=== PATIENT | female | born 1940 | race Caucasian/White ===

== ENCOUNTER → 2019-10-29 12:45 | Outpatient (BNVA) | payer MEDICARE, BC, SELFPAY | PROVIDERS: Visit Provider Internal Medicine Hematology & Oncology | DX: C50.919 Malignant neoplasm of unspecified site of unspecified female breast (principal) | CPT/HCPCS: 80053; 85025 ==

== ENCOUNTER 2019-10-31 10:57 | Outpatient (CLI) | payer MEDICARE, BC, SELFPAY ==
--- NOTE | 2019-10-31 11:49 | ONC FU_ITS ---
Dr. Hutton follow up note Patient: Loreto Ceballos Unit #: [id number]: 1940 Dicatated By: Atif Hutton M.D.Date of Visit:Oct 31, 2019 Onc Med Follow-up/Prog Note History of Present Illness: Mrs. Loreto Ceballos,79 -year-old female with recent history of left breast mass underwent mammogram and left breast ultrasound on 03/23/2017. It confirmed BI-RADS Category 4 suspicious lesion at 2:00 position. Underwent ultrasound-guided left breast biopsy on 04/20/2017 showed ductal carcinoma in situ followed by left breast lumpectomy on 05/10/2017 And final pathology report showed ductal carcinoma in situ, low-grade, cribriform histology Pattern, tumor dimension 1.4 x 1.4 cm with clear surgical margins, ER/IA positive followed by postlumpectomy radiation started on arimidex in may and Tolerating well mammogram done on 05/22/2019, showed BI-RADS 2, benign Came for follow-up, denies any specific complaints, no nausea vomiting no fever no chills no diarrhea constipation, hot flashes are improving, tolerating Arimidex well. Medications: Anastrozole 1 (1 mg) Tablet Oral daily, Aspirin Low Dose 1 Tablet (of 81 mg) Oral daily, CeleXA 1 Tablet (of 10 mg) Oral daily, Cholecalciferol 1 Tablet (of 1000 Units) Capsule Oral daily, Crestor 1 Tablet (of 10 mg) Oral daily, Cyanocobalamin 1 (1000 mcg) Tablet Oral daily, HydroCHLOROthiazide 1 Tablet (of 12.5 mg) Oral daily, Irbesartan 1 Tablet (of 150 mg) Oral daily, Metoprolol Tartrate 1 Tablet (of 50 mg) Oral b.i.d., Omeprazole 1 Tablet (of 10 mg) Capsule Delayed Release Oral daily, TraZODone HCl 1.5 Tablet (of 100 mg) Oral daily Allergies: Tetracycline HCl Review of Systems: Review of Systems is not available for this patient. Vital Signs: Performed on Oct 31, 2019 11:07 Height - 67.00 in Weight - 201.1 lbs (HIGH) BSA - 2.03 sq.m BMI - 31.50 (HIGH) Temperature - 97.6 F (LOW) Pulse - 69 /min Respiration - 17 /min BP - 144/62 mm(hg) (HIGH) O2 Sat - 97 % Pain - 0 Performance Status: 0 - Fully active, able to carry on all predisease activities without restrictions. (ECOG) Physical Examination: Respiratory - Lungs are clear to auscultation without rhonchi or wheezing, Cardiovascular - Regular rate and rhythm of heart, Extremities - no edema. 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 Estrogen receptor 99% strongly positive Progesterone receptors 99% strongly positive s/p postlumpectomy radiation concluded on 07/18/2017 Started on Arimidex on 06/26/2017 Plan: Discussed with patient regarding her labs white blood count 5.9 hemoglobin 12.8 crit 39.2 platelets 199,000 CMP within normal limits Clinically, patient doing well, with no signs symptom suggestive of recurrence of disease. Tolerating Arimidex well, we'll continue same Mild leukopenia, now resolved, will continue to monitor, calcium is on the upper side of normal. Return to clinic in 6 month with CBC CMP and yearly mammogram. Signed By: Atif Hutton M.D. <<Signature on File>>
== END 2019-10-31 10:58 | disposition home or self-care (01) ==
LOC: ONCMED 11:02
PROVIDERS: PCP Family Medicine; Visit Provider Internal Medicine Hematology & Oncology
DX: D05.12 Intraductal carcinoma in situ of left breast (principal); Z17.0 Estrogen receptor positive status [ER+]; Z79.811 Long term (current) use of aromatase inhibitors; Z79.82 Long term (current) use of aspirin; Z79.899 Other long term (current) drug therapy
CPT/HCPCS: 99214

== ENCOUNTER → 2020-04-28 13:12 | Outpatient (BNVA) | payer MEDICARE, BC, SELFPAY | PROVIDERS: PCP Family Medicine; Visit Provider Internal Medicine Hematology & Oncology | DX: C50.919 Malignant neoplasm of unspecified site of unspecified female breast (principal) | CPT/HCPCS: 80053; 85025 ==

== ENCOUNTER 2020-04-30 06:05 | Outpatient (CLI) | payer MEDICARE, BC, SELFPAY ==
--- NOTE | 2020-04-30 13:05 | ONC FU_ITS ---
Dr. Hutton follow up note Patient: Loreto Ceballos Unit #: [id number]: 1940 Dicatated By: Atif Hutton M.D.Date of Visit:Apr 30, 2020 Telehealth Progress Note The patient has been informed that the visit may not be secure and acknowledged the information. I have explained the option of participating in a telephone or video visit during the COVID-19 public health emergency to the patient. After being given an opportunity to ask questions about and discuss this type of visit, the patient verbally consented to proceeding with the telephone/video visit. the patient understands that this service replaces an office visit and they may be billed and /or responsible for any applicable copayments History of Present Illness: Mrs. Loreto Ceballos,79 -year-old female with recent history of left breast mass underwent mammogram and left breast ultrasound on 03/23/2017. It confirmed BI-RADS Category 4 suspicious lesion at 2:00 position. Underwent ultrasound-guided left breast biopsy on 04/20/2017 showed ductal carcinoma in situ followed by left breast lumpectomy on 05/10/2017 And final pathology report showed ductal carcinoma in situ, low-grade, cribriform histology Pattern, tumor dimension 1.4 x 1.4 cm with clear surgical margins, ER/KS positive followed by postlumpectomy radiation started on arimidex in may and Tolerating well mammogram done on 05/22/2019, showed BI-RADS 2, benign Evaluated via telephone, patient denies any specific complaints, no nausea vomiting, no diarrhea constipation, no fever or chills, no shortness of breath or palpitation, no hot flashes, no night sweats,. Tolerating her Arimidex/vitamin D/calcium well Medications: Anastrozole 1 (1 mg) Tablet Oral daily, Aspirin Low Dose 1 Tablet (of 81 mg) Oral daily, CeleXA 1 Tablet (of 10 mg) Oral daily, Cholecalciferol 1 Tablet (of 1000 Units) Capsule Oral daily, Crestor 1 Tablet (of 10 mg) Oral daily, Cyanocobalamin 1 (1000 mcg) Tablet Oral daily, HydroCHLOROthiazide 1 Tablet (of 12.5 mg) Oral daily, Irbesartan 1 Tablet (of 150 mg) Oral daily, Metoprolol Tartrate 1 Tablet (of 50 mg) Oral b.i.d., Omeprazole 1 Tablet (of 10 mg) Capsule Delayed Release Oral daily, TraZODone HCl 1.5 Tablet (of 100 mg) Oral daily Allergies: Tetracycline HCl Review of Systems: Review of Systems is not available for this patient. Vital Signs: Vitals are not available for this patient. Performance Status: 0 - Fully active, able to carry on all predisease activities without restrictions. (ECOG) Physical Examination: Respiratory - Denies any shortness of breath or wheezing, Cardiovascular - Denies any palpitation or tachycardia, Gastrointestinal - Denies any abdominal pain or fullness, Musculoskeletal - Denies any lower extremity edema. Lab/Imaging: Test performed on Apr 28, 2020 13:12 Glucose 106 mg/dL BUN 18 mg/dL Creatinine 1.0 mg/dL Cr Clearance (Est) 63.54 mL/min Sodium 138 mmol/L Potassium 3.9 mmol/L Chloride 100 mmol/L CO2 23 mmol/L Calcium 9.4 mg/dL Protein, Total 6.4 g/dL Albumin 4.3 g/dL Globulin 2.1 g/dL Bilirubin, Total 0.8 mg/dL Alkaline Phosphatase 51 IU/L AST (SGOT) 14 IU/L ALT (SGPT) 14 IU/L WBC 3.6 10^9/L RBC 3.65 10^12/L HGB 12.7 g/dL HCT 38.5 % MCV 105.5 fl MCH 34.8 pg MCHC 33.0 g/dL RDW 12.4 % Platelet Count 192 10^9/L MPV 10.0 fL Neutrophils (Gran) 1.85 10^9/L Lymphocytes 1.1 10^9/L Monocytes 0.4 10^9/L Eosinophils 0.3 10^9/L Basophils 0.0 10^9/L Manual Lymphocytes 29.6 % Manual Monocytes 9.9 % Manual Eosinophils 7.0 % Manual Basophils 1.1 % 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 Estrogen receptor 99% strongly positive Progesterone receptors 99% strongly positive s/p postlumpectomy radiation concluded on 07/18/2017 Started on Arimidex on 06/26/2017 Plan: Discussed with patient regarding her labs white blood count 3.6 hemoglobin 12.7 hematocrit 38.5 platelets 192,000 CMP within normal limits Clinically, patient is doing well with no new signs symptom suggestive of recurrence of disease, follow-up lab work-up within normal range except progressive leukopenia, etiology unclear could be normal lab variation or considering her age underlying myelodysplasia cannot be ruled out, or medication induced, at this point will monitor discussed with patient regarding possible causes of mild leukopenia and will return to clinic in 6 months with CBC CMP and will also renew her prescription for Arimidex. Time spent on phone 8 minutes Signed By: Atif Hutton M.D. <<Signature on File>>
== END 2020-04-30 06:06 | disposition home or self-care (01) ==
LOC: ONCMED 06:07
PROVIDERS: PCP Family Medicine; Visit Provider Internal Medicine Hematology & Oncology
DX: D05.12 Intraductal carcinoma in situ of left breast (principal); Z17.0 Estrogen receptor positive status [ER+]; D72.819 Decreased white blood cell count, unspecified; Z79.811 Long term (current) use of aromatase inhibitors; Z92.3 Personal history of irradiation

== ENCOUNTER → 2020-05-11 16:56 | Outpatient (BNVA) | payer MEDICARE, BC, SELFPAY | PROVIDERS: PCP Family Medicine; Visit Provider Family Medicine | DX: E78.2 Mixed hyperlipidemia (principal); I10 Essential (primary) hypertension | CPT/HCPCS: 80053; 80061; 84443 ==

== ENCOUNTER → 2020-10-26 10:04 | Outpatient (BNVA) | payer MEDICARE, BC, SELFPAY | PROVIDERS: PCP Family Medicine; Visit Provider Internal Medicine Hematology & Oncology | DX: C50.919 Malignant neoplasm of unspecified site of unspecified female breast (principal); I10 Essential (primary) hypertension; E78.2 Mixed hyperlipidemia | CPT/HCPCS: 80053; 80061; 84443; 85025 ==

== ENCOUNTER 2020-10-29 07:58 | Outpatient (CLI) | payer MEDICARE, BC, SELFPAY ==
--- NOTE | 2020-10-29 08:54 | ONC FU_ITS ---
Dr. Hutton follow up note Patient: Loreto Ceballso Unit #: [id number]: 1940 Dicatated By: Atif Hutton M.D.Date of Visit:Oct 29, 2020 Onc Med Follow-up/Prog Note History of Present Illness: Mrs. Loreto Ceballos,80 -year-old female with recent history of left breast mass underwent mammogram and left breast ultrasound on 03/23/2017. It confirmed BI-RADS Category 4 suspicious lesion at 2:00 position. Underwent ultrasound-guided left breast biopsy on 04/20/2017 showed ductal carcinoma in situ followed by left breast lumpectomy on 05/10/2017 And final pathology report showed ductal carcinoma in situ, low-grade, cribriform histology Pattern, tumor dimension 1.4 x 1.4 cm with clear surgical margins, ER/DE positive followed by postlumpectomy radiation started on arimidex in may and Tolerating well mammogram done on 05/22/2019, showed BI-RADS 2, benign Came for follow-up, denies any specific complaints, no fever chills, no nausea or vomiting, no diarrhea or constipation, no new bony pains, no recurrent infections, no night sweats, no abdominal fullness, no dysuria, no cough or sore throat. Patient has COVID-19 vaccination done, tolerating Arimidex well Medications: Anastrozole 1 (1 mg) Tablet Oral daily, Aspirin Low Dose 1 Tablet (of 81 mg) Oral daily, CeleXA 1 Tablet (of 10 mg) Oral daily, Cholecalciferol 1 Tablet (of 1000 Units) Capsule Oral daily, Crestor 1 Tablet (of 10 mg) Oral daily, Cyanocobalamin 1 (1000 mcg) Tablet Oral daily, HydroCHLOROthiazide 1 Tablet (of 12.5 mg) Oral daily, Irbesartan 1 Tablet (of 150 mg) Oral daily, Metoprolol Tartrate 1 Tablet (of 50 mg) Oral b.i.d., Omeprazole 1 Tablet (of 10 mg) Capsule Delayed Release Oral daily, TraZODone HCl 1.5 Tablet (of 100 mg) Oral daily Allergies: Tetracycline HCl Review of Systems: Review of Systems is not available for this patient. Vital Signs: Performed on Oct 29, 2020 08:23 Height - 67.00 in Weight - 205.2 lbs (HIGH) BSA - 2.04 sq.m BMI - 32.14 (HIGH) Temperature - 98.7 F Pulse - 60 /min Respiration - 17 /min BP - 161/86 mm(hg) (HIGH) O2 Sat - 95 % (LOW) Pain - 0 Performance Status: 1 - No physically strenuous activity, but ambulatory and able to carry out light or sedentary work (e.g. office work, light house work). (ECOG) Physical Examination: Respiratory - Lungs are clear to auscultation, Cardiovascular - Regular rate and rhythm of heart, Gastrointestinal - Soft, bowel sounds present, Extremities - No visible edema. Lab/Imaging: Test performed on Oct 26, 2020 10:04 TSH 2.83 uU/mL Cholesterol, Total 147 mg/dL Glucose 92 mg/dL BUN 17 mg/dL HDL Cholesterol 72 mg/dL Creatinine 0.9 mg/dL LDL Cholesterol 58 mg/dL Cr Clearance (Est) 70.8100 mL/min Triglycerides 85 mg/dL Sodium 139 mmol/L Potassium 4.2 mmol/L Chloride 101 mmol/L CO2 27 mmol/L Calcium 9.6 mg/dL Protein, Total 6.2 g/dL Albumin 4.2 g/dL Globulin 2.0 g/dL Bilirubin, Total 0.6 mg/dL Alkaline Phosphatase 48 IU/L AST (SGOT) 12 IU/L ALT (SGPT) 10 IU/L WBC 4.1 10^9/L RBC 3.66 10^12/L HGB 12.5 g/dL HCT 37.7 % MCV 103.0 fl MCH 34.2 pg MCHC 33.2 g/dL RDW 12.9 % Platelet Count 201 10^9/L MPV 7.4 fL Neutrophils (Gran) 2.5 10^9/L Lymphocytes 1.2 10^9/L Monocytes 0.4 10^9/L Manual Lymphocytes 29.3 % Manual Monocytes 8.6 % 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 Estrogen receptor 99% strongly positive Progesterone receptors 99% strongly positive s/p postlumpectomy radiation concluded on 07/18/2017 Started on Arimidex on 06/26/2017 Mild leukopenia, etiology unclear Plan: Discussed with patient regarding her labs white blood count 4.1, compared to 3.6 on April 28, 2020 hemoglobin 12.5 hematocrit 37.7 platelets 201,000 Clinically, patient is doing well with no new signs symptom suggestive of disease recurrence, tolerating Arimidex along with vitamin D and calcium well, will give her refill today and then also order follow-up mammogram, patient missed her last mammogram because of Covid pandemic As well mild leukopenia is concerned, today's labs shows resolution of leukopenia, will continue to monitor Return to clinic in 6 months with CBC and follow-up mammogram Signed By: Atif Hutton M.D. <<Signature on File>>
== END 2020-10-29 07:59 | disposition home or self-care (01) ==
LOC: ONCMED 08:03
PROVIDERS: PCP Family Medicine; Visit Provider Internal Medicine Hematology & Oncology
DX: D05.12 Intraductal carcinoma in situ of left breast (principal); Z17.0 Estrogen receptor positive status [ER+]; D72.819 Decreased white blood cell count, unspecified; E55.9 Vitamin D deficiency, unspecified; E83.51 Hypocalcemia; Z79.811 Long term (current) use of aromatase inhibitors
CPT/HCPCS: 99214

== ENCOUNTER → 2021-05-09 10:06 | Outpatient (BNVA) | payer MEDICARE, BC, SELFPAY | PROVIDERS: PCP Family Medicine; Visit Provider Internal Medicine Hematology & Oncology | DX: I10 Essential (primary) hypertension (principal); E78.2 Mixed hyperlipidemia; Z85.3 Personal history of malignant neoplasm of breast | CPT/HCPCS: 80053; 80061; 85007; 85027 ==

== ENCOUNTER 2021-05-16 12:52 | Outpatient (CLI) | payer MEDICARE, BC, SELFPAY ==
--- NOTE | 2021-05-16 13:14 | MM_ITS ---
WS: [id number] BILATERAL DIGITAL DIAGNOSTIC MAMMOGRAM MAMMOGRAPHY WITH CAD CLINICAL INFORMATION: HX OF BREAST CA COMPARISON: TECHNIQUE: Bilateral CC, MLO, and ML views. FINDINGS: Scattered fibroglandular densities bilaterally. Incidental punctate calcifications right breast. Vasc ular calcification. Postoperative changes left breast with lumpectomy and parenchymal fibrosis. No suspicious focal mass, asymmetry, calcifications, or architectural distortion. No evidence of kandy gnancy. MM/[place] [id number] IMPRESSION: BI-RADS: 2-Benign FOLLOW UP: 1 Year Follow-up Recommend return to annual diagnostic mammography.
== END 2021-05-16 12:53 | disposition home or self-care (01) ==
LOC: RADSHAW 12:57
PROVIDERS: PCP Family Medicine; Visit Provider Internal Medicine Hematology & Oncology
DX: Z85.3 Personal history of malignant neoplasm of breast (principal)
CPT/HCPCS: 77066

== ENCOUNTER 2021-05-27 11:26 | Outpatient (CLI) | payer MEDICARE, BC, SELFPAY ==
--- NOTE | 2021-05-27 12:02 | ONC FU_ITS ---
Dr. Hutton follow up note Patient: Loreto Ceballos Unit #: [id number]: 1940 Dicatated By: Atif Hutton M.D.Date of Visit:May 27, 2021 Onc Med Follow-up/Prog Note History of Present Illness: Mrs. Loreto Ceballos,80 -year-old female with recent history of left breast mass underwent mammogram and left breast ultrasound on 03/23/2017. It confirmed BI-RADS Category 4 suspicious lesion at 2:00 position. Underwent ultrasound-guided left breast biopsy on 04/20/2017 showed ductal carcinoma in situ followed by left breast lumpectomy on 05/10/2017 And final pathology report showed ductal carcinoma in situ, low-grade, cribriform histology Pattern, tumor dimension 1.4 x 1.4 cm with clear surgical margins, ER/MN positive followed by postlumpectomy radiation started on arimidex in may and Tolerating well mammogram done on 05/22/2019, showed BI-RADS 2, benign Follow-up mammogram done on May 16, 2021 shows BI-RADS 2, benign Came for follow-up, denies any specific complaints, no fever chills, no nausea or vomiting, no diarrhea constipation, no hot flashes, no new bony pains, tolerating Arimidex/vitamin D/calcium well. 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 Prado, statement distribution clerk she had a follow-up mammogram done recently Medications: Anastrozole 1 (1 mg) Tablet Oral daily, Aspirin Low Dose 1 Tablet (of 81 mg) Oral daily, CeleXA 1 Tablet (of 10 mg) Oral daily, Cholecalciferol 1 Tablet (of 1000 Units) Capsule Oral daily, Crestor 1 Tablet (of 10 mg) Oral daily, Cyanocobalamin 1 (1000 mcg) Tablet Oral daily, HydroCHLOROthiazide 1 Tablet (of 12.5 mg) Oral daily, Irbesartan 1 Tablet (of 150 mg) Oral daily, Metoprolol Tartrate 1 Tablet (of 50 mg) Oral b.i.d., Omeprazole 1 Tablet (of 10 mg) Capsule Delayed Release Oral daily, TraZODone HCl 1.5 Tablet (of 100 mg) Oral daily Allergies: Tetracycline HCl Review of Systems: Review of Systems is not available for this patient. Vital Signs: Performed on May 27, 2021 11:44 Height - 67.00 in Weight - 204.4 lbs (LOW) BSA - 2.04 sq.m BMI - 32.01 (HIGH) Temperature - 98.1 F (LOW) Pulse - 66 /min Respiration - 18 /min BP - 183/91 mm(hg) (HIGH) O2 Sat - 96 % Pain - 0 Fatigue - 3 Performance Status: Perf. Status is not available for this patient. Physical Examination: Respiratory - Lungs are clear to auscultation, Cardiovascular - Regular rate and rhythm of heart, Gastrointestinal - Soft, bowel sounds present, Extremities - No visible edema. Lab/Imaging: Most recent lab results are not available for this patient. 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 Estrogen receptor 99% strongly positive Progesterone receptors 99% strongly positive s/p postlumpectomy radiation concluded on 07/18/2017 Started on Arimidex on 06/26/2017 Mild leukopenia, etiology unclear Plan: Discussed with patient regarding her labs done on May 26, 2021 shows white blood count 5.4 hemoglobin 12.4 hematocrit 38 platelets 206,000 with a normal differential CMP within normal limits Follow-up mammogram done on May 24, 2021 shows BI-RADS 2, benign Clinically, patient doing well with no new signs symptom suggestive of recurrence of disease, tolerating Arimidex/vitamin D/calcium well, will continue with same and return to clinic in 6 months with CBC, As follow-up CBC shows resolution of mild leukopenia we will continue to monitor Signed By: Atif Hutton M.D. <<Signature on File>>
== END 2021-05-27 11:27 | disposition home or self-care (01) ==
PROVIDERS: PCP Family Medicine; Visit Provider Internal Medicine Hematology & Oncology
DX: D05.82 Other specified type of carcinoma in situ of left breast (principal); Z92.3 Personal history of irradiation; D72.819 Decreased white blood cell count, unspecified; Z79.811 Long term (current) use of aromatase inhibitors; E83.51 Hypocalcemia
CPT/HCPCS: 99214

== ENCOUNTER → 2021-11-22 10:13 | Outpatient (BNVA) | payer MEDICARE, BC, SELFPAY | PROVIDERS: PCP Family Medicine; Visit Provider Family Medicine | DX: L30.9 Dermatitis, unspecified (principal); C50.919 Malignant neoplasm of unspecified site of unspecified female breast; I10 Essential (primary) hypertension; R21 Rash and other nonspecific skin eruption | CPT/HCPCS: 80053; 80061; 85025; 88304 ==

== ENCOUNTER 2021-11-25 10:16 | Outpatient (CLI) | payer MEDICARE, BC, SELFPAY ==
--- NOTE | 2021-11-25 10:50 | ONC FU_ITS ---
Dr. Hutton follow up note Patient: Loreto Ceballos Unit #: [id number]: 1940 Dicatated By: Atif Hutton M.D.Date of Visit:Nov 25, 2021 Onc Med Follow-up/Prog Note History of Present Illness: Mrs. Loreto Ceballos,81 -year-old female with recent history of left breast mass underwent mammogram and left breast ultrasound on 03/23/2017. It confirmed BI-RADS Category 4 suspicious lesion at 2:00 position. Underwent ultrasound-guided left breast biopsy on 04/20/2017 showed ductal carcinoma in situ followed by left breast lumpectomy on 05/10/2017 And final pathology report showed ductal carcinoma in situ, low-grade, cribriform histology Pattern, tumor dimension 1.4 x 1.4 cm with clear surgical margins, ER/RI positive followed by postlumpectomy radiation started on arimidex in may and Tolerating well mammogram done on 05/22/2019, showed BI-RADS 2, benign Follow-up mammogram done on May 16, 2021 shows BI-RADS 2, benign Came for follow-up, denies any specific complaints, no fever chills, no nausea or vomiting, no diarrhea or constipation, no melena or hematochezia, no hemoptysis hematemesis, no new bony pains, tolerating Arimidex well Medications: Anastrozole 1 (1 mg) Tablet Oral daily, Aspirin Low Dose 1 Tablet (of 81 mg) Oral daily, CeleXA 1 Tablet (of 10 mg) Oral daily, Cholecalciferol 1 Tablet (of 1000 Units) Capsule Oral daily, Crestor 1 Tablet (of 10 mg) Oral daily, HydroCHLOROthiazide 1 Tablet (of 12.5 mg) Oral daily, Irbesartan 1 Tablet (of 150 mg) Oral daily, Metoprolol Tartrate 1 Tablet (of 50 mg) Oral b.i.d., Omeprazole 1 Tablet (of 10 mg) Capsule Delayed Release Oral daily, TraZODone HCl 1.5 Tablet (of 100 mg) Oral daily, Vitamin Deficiency System-B12 Injection Take as Directed Allergies: Tetracycline HCl Review of Systems: Review of Systems is not available for this patient. Vital Signs: Performed on Nov 25, 2021 10:35 Height - 67.00 in Weight - 201.0 lbs (LOW) BSA - 2.03 sq.m BMI - 31.48 (HIGH) Temperature - 97.9 F (LOW) Pulse - 81 /min Respiration - 18 /min BP - 149/84 mm(hg) (HIGH) O2 Sat - 96 % Pain - 0 Fatigue - 5 Performance Status: 0 - Fully active, able to carry on all predisease activities without restrictions. (ECOG) Physical Examination: Respiratory - Lungs are clear to auscultation, Cardiovascular - Regular rate and rhythm of heart, Gastrointestinal - Soft, bowel sounds present, Extremities - No visible edema. Lab/Imaging: Test performed on Nov 22, 2021 13:09 Cholesterol, Total 144 mg/dL Glucose 116 mg/dL BUN 25 mg/dL HDL Cholesterol 68 mg/dL Creatinine 1.2 mg/dL LDL Cholesterol 59 mg/dL Cr Clearance (Est) 51.99 mL/min Triglycerides 83 mg/dL Sodium 138 mmol/L Potassium 4.2 mmol/L Chloride 102 mmol/L CO2 26 mmol/L Calcium 9.8 mg/dL Protein, Total 6.2 g/dL Albumin 4.2 g/dL Globulin 2.0 g/dL Bilirubin, Total 0.3 mg/dL Alkaline Phosphatase 52 International Units/L AST (SGOT) 10 International Units/L ALT (SGPT) 7 International Units/L WBC 4.8 10^9/L RBC 3.41 10^12/L HGB 11.8 g/dL HCT 36.3 % MCV 106.5 fl MCH 34.6 pg MCHC 32.5 g/dL RDW 12.5 % Platelet Count 205 10^9/L MPV 9.7 fL Neutrophils (Gran) 2.92 10^9/L Lymphocytes 0.9984 10^9/L Monocytes 0.456 10^9/L Eosinophils 0.3216 10^9/L Basophils 0.0528 10^9/L 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 Estrogen receptor 99% strongly positive Progesterone receptors 99% strongly positive s/p postlumpectomy radiation concluded on 07/18/2017 Started on Arimidex on 06/26/2017 Mild leukopenia, etiology unclear Plan: Discussed with patient regarding her labs white blood count 4.8 hemoglobin 11.8 hematocrit 36.3 platelets 205,000 CMP within normal limits Clinically, patient doing well with no new signs symptoms history of recurrence of disease tolerating Arimidex well, will continue with same, she will return to clinic in 6 months, but that time she will complete 5 years of Arimidex therapy and will conclude adjuvant hormonal therapy. We will also consider follow-up mammogram prior to her next visit with CBC CMP. As per patient she was started on B12 supplement by PMD because of low B12 level. Signed By: Atif Hutton M.D. <<Signature on File>>
== END 2021-11-25 10:17 | disposition home or self-care (01) ==
PROVIDERS: PCP Family Medicine; Visit Provider Internal Medicine Hematology & Oncology
DX: D05.12 Intraductal carcinoma in situ of left breast (principal); Z17.0 Estrogen receptor positive status [ER+]; D72.819 Decreased white blood cell count, unspecified; D51.9 Vitamin B12 deficiency anemia, unspecified; Z79.818 Long term (current) use of other agents affecting estrogen receptors and estrogen levels; Z79.899 Other long term (current) drug therapy
CPT/HCPCS: 99214

== ENCOUNTER → 2021-12-26 11:11 | Outpatient (BNVA) | payer MEDICARE, BC, SELFPAY | PROVIDERS: PCP Family Medicine; Visit Provider Family Medicine | DX: E53.8 Deficiency of other specified B group vitamins (principal) | CPT/HCPCS: 80048 ==

== ENCOUNTER 2022-06-08 09:36 | Outpatient (CLI) | payer MEDICARE, BC, SELFPAY ==
--- NOTE | 2022-06-08 10:15 | MM_ITS ---
WS: [id number] DIAGNOSTIC BILATERAL DIGITAL BREAST TOMOSYNTHESIS MAMMOGRAPHY WITH CAD HISTORY: HX OF BREAST CA COMPARISON: 05/16/2021, 05/22/2019 TECHNIQUE: Bilateral craniocaudad, mediolateral oblique, and mediolateral views are submitted with to mosynthesis and SM. Computer aided detection utilized. Breast composition: There are scattered areas of fibroglandular density. Volume loss and distortion u pper outer quadrant of the LEFT breast. There is mild trabecular thickening in the LEFT breast. No mckinney spicious for recurrent mass. MM/[place] [id number] IMPRESSION: BI-RADS: 2-Benign FOLLOW UP: 1 Year Follow-up
== END 2022-06-08 09:37 | disposition home or self-care (01) ==
LOC: RAD 09:37
PROVIDERS: PCP Family Medicine; Visit Provider Internal Medicine Hematology & Oncology
DX: Z85.3 Personal history of malignant neoplasm of breast (principal)
CPT/HCPCS: 77062

== ENCOUNTER → 2022-08-07 14:08 | Outpatient (BNVA) | payer MEDICARE, BC, SELFPAY | PROVIDERS: PCP Family Medicine; Visit Provider Internal Medicine Hematology & Oncology | DX: D05.12 Intraductal carcinoma in situ of left breast (principal) | CPT/HCPCS: 80053; 85025 ==

== ENCOUNTER → 2022-08-31 11:52 | Outpatient (BNVA) | payer MEDICARE, BC, SELFPAY | PROVIDERS: PCP Family Medicine; Visit Provider Nurse Practitioner Family | DX: E53.8 Deficiency of other specified B group vitamins (principal); J20.9 Acute bronchitis, unspecified | CPT/HCPCS: 71046 ==

== ENCOUNTER 2022-09-07 12:37 | Oncology outpatient (recurring) (ONCR) | payer MEDICARE, BC, SELFPAY | END 2022-09-26 23:59 | disposition home or self-care (01) | PROVIDERS: PCP Family Medicine; Visit Provider Internal Medicine Hematology & Oncology | DX: Z08 Encounter for follow-up examination after completed treatment for malignant neoplasm (principal); Z85.3 Personal history of malignant neoplasm of breast; Z92.3 Personal history of irradiation | CPT/HCPCS: 99213; 99214 ==

== ENCOUNTER → 2023-01-18 11:27 | Outpatient (BNVA) | payer MEDICARE, BC, SELFPAY | PROVIDERS: PCP Family Medicine; Visit Provider Family Medicine | DX: E53.8 Deficiency of other specified B group vitamins (principal); E78.2 Mixed hyperlipidemia; F41.9 Anxiety disorder, unspecified; I10 Essential (primary) hypertension; K21.9 Gastro-esophageal reflux disease without esophagitis | CPT/HCPCS: 80053; 80061; 82607; 84443; 85025 ==

== ENCOUNTER 2023-11-08 10:55 | Oncology outpatient (recurring) (ONCR) | payer MEDICARE, BC, SELFPAY | END 2023-11-25 23:59 | disposition home or self-care (01) | LOC: ONCMED 10:55 | PROVIDERS: PCP Family Medicine; Visit Provider Internal Medicine Hematology & Oncology | DX: Z08 Encounter for follow-up examination after completed treatment for malignant neoplasm (principal); Z85.3 Personal history of malignant neoplasm of breast; Z92.23 Personal history of estrogen therapy; Z92.25 Personal history of immunosuppression therapy; R21 Rash and other nonspecific skin eruption | CPT/HCPCS: 99214 ==

== ENCOUNTER → 2023-11-22 09:51 | Outpatient (BNVA) | payer MEDICARE, BC, SELFPAY | PROVIDERS: PCP Family Medicine; Referring Provider Internal Medicine Medical Oncology; Visit Provider Dermatology | DX: L30.9 Dermatitis, unspecified (principal); F42.4 Excoriation (skin-picking) disorder; Z85.3 Personal history of malignant neoplasm of breast; Z92.3 Personal history of irradiation | CPT/HCPCS: 11104; 11105; 99202 ==

== ENCOUNTER → 2023-12-06 11:13 | Outpatient (BNVA) | payer MEDICARE, BC, SELFPAY | PROVIDERS: PCP Family Medicine; Visit Provider Dermatology | DX: L12.0 Bullous pemphigoid (principal); Z85.3 Personal history of malignant neoplasm of breast; Z92.3 Personal history of irradiation; Z48.02 Encounter for removal of sutures | CPT/HCPCS: 99213 ==

== ENCOUNTER → 2024-01-31 13:09 | Outpatient (BNVA) | payer MEDICARE, BC, SELFPAY | PROVIDERS: PCP Family Medicine; Visit Provider Dermatology | DX: L12.0 Bullous pemphigoid (principal); Z85.3 Personal history of malignant neoplasm of breast; Z92.3 Personal history of irradiation | CPT/HCPCS: 99213 ==